=== PATIENT | female | born 1995 | race Two or more races ===

== ENCOUNTER 2025-02-02 19:54 | Emergency (ER) | payer MEDICAID, OTHER ==
[~2025-02-02] VITALS: Ht 154.9 cm; Wt 63.0 kg
[2025-02-02] MEDS: SODIUM CHLORIDE 0.9% 1,000 ML IV ONE (20:30)
--- NOTE | 2025-02-02 21:33 | ED.PDOC ---
VICE PRESIDENT SUPPLY CHAIN HPI Comments 29 y/o F presents with c/c of vaginal spotting for the past few days. Patient reports having her IUD replaced, approximately, 3x weeks ago. She had some few days of initial spotting following device replacement that resolved on its own. Symptoms recurred, again, in the last few days with associated chills. No recent sexual intercourse, history of STD's, or current endorsement. Denies any further acute symptoms. keyana: Vaginal bleed HPI: Poor Historian. 29-year-old female presents to emergency depart for evaluation of vaginal spotting for the last few days. Patient states she had her IUD replaced proximally three weeks ago. She did have some few days of spotting immediately after the replacement however it has resolved. Symptoms recurred again in the last few days with the associated mild chills. Denies any recent intercourse. Denies any history of STDs. Denies . Past Medical History: denies Past Surgical History: cholecystectomy, IUD REVIEW OF SYSTEMS: CONSTITUTIONAL: Denies acute: fever, diaphoresis, generalized weakness. HEAD: Denies acute: headache, photophobia Eyes: Denies acute: Double vision, vision loss, eye pain, eye discharge. EARS: Denies acute: tinnitus, hearing loss, ear discharge, ear pain, THROAT: Denies acute: sore throat, swelling, difficulty swallowing , pain with swallowing, change in voice. NECK: Denies acute: neck pain, neck swelling, stiff neck. HEART: Denies acute : chest pain, palpitations, LUNGS: Denies acute: SOB, wheezing, cough, hemoptysis ABDOMEN: Denies acute: abdominal pain, Nausea, Vomiting, diarrhea, melena , hematemesis, hematochezia SKIN: Denies acute: rash, redness, lesions, itchiness. EXTREMITIES: Denies acute: calf pain, numbness, tingling, weakness, denies pain in extremity. Denies acute: Low back pain. Neuro: Denies acute: focal neurological deficit, motor or sensory focal neurological deficit, tremors, seizure like activity, confusion, dizziness, change in mental status, loss of bowel or bladder function, cauda equina like symptoms. : Denies acute: dysuria, hematuria, flank pain, increase in urinary frequency. PSYCH: Denies acute: hallucination, suicidal ideation, homicidal ideation. FEMALE: Denies acute: , foul odor, unusual discharge. PHYSICAL EXAM: General: ----mild----acute distress, awake and alert. Head: normocephalic, atraumatic. No raccoon's eyes, no rowe sign. Neck: supple, trachea is midline, no swelling. Throat: Normal phonation. Eyes:, no erythema, no purulent discharge, no proptosis, no icterus. Heart: regular rate, regular rhythm, no significant murmur appreciated. Lungs: no apparent respiratory distress, Able to speak in full sentences. No wheezing, no rhonchi, no crackles. No stridors Clear to auscultation bilaterally. Abdomen: non tender to palpation, non distended, soft, no guarding, no rebound, + bowel sounds. Neuro: Awake, Alert, oriented to name, self, situation, follows commands GCS=15. Speech is normal. Skin: no petechia, no purpura, no cyanosis, non-pale, not jaundice. Lower extremities: --no - Pitting edema no deformity, no focal swelling, no calf TTP. Makes eye contact. moves all four extremities. Face: no apparent facial droop. Ambulating in the ED independently. ED COURSE: DISCLAIMER: This medical document was created using an electronic medical record system with voice recognition software and computerized dictation system. Although this document has been carefully reviewed, there might still be some phonetic and typographical errors. Occasional wrong-word or "sound-alike" substitutions may have occurred due to the inherent limitations of voice recognition software. These areas are purely typographical due to imperfections of the software programs and do not reflect any compromise in the patient's medical care. Please read the chart carefully and recognize, using context, where these substitutions have occurred. Chief Complaint: Vaginal Bleed Time Seen by MD: 21:31 Reviewed Notes: Allergies Information Source: Patient Was a procedure done? Was a procedure done?: No Differential Diagnosis (MARKETING ACCOUNT MANAGER) Vaginal Bleeding: - Complete, - Incomplete, - Inevitable, - Missed, - Threatened, Abruptio Placentae, Blood Loss Anemia, Cervicitis, Dysmenorrhea, Ectopic , Hormonal, Menorrhagia, Menometrorrhagia, Menstrual Bleeding, Myomatous Uterus, PID, Placenta Previa, Precipitous Hct, Trauma, UTI, Vaginitis, Other (Differential diagnosis includes but not limited to DU B, menorrhea, metromenorrhagia, neoplasm, coagulopathy,, trauma, miscarriage, placenta previa, placental abruption, ) X-Ray, Labs, Meds, VS Vital Signs Date Time Temp Pulse Resp B/P (MAP) Pulse Ox O2 Delivery O2 Flow Rate FiO2 02/03/25 00:33 99.1 60 17 128/84 (99) 96 99.1 02/02/25 21:40 98.3 91 16 134/94 (107) 96 98.3 02/02/25 21:40 91 16 91 Room Air 02/02/25 21:25 67 02/02/25 20:01 98.6 82 16 129/98 100 98.6 Lab Test 02/02/25 20:42 02/02/25 20:40 02/02/25 20:38 Range/Units White Blood Count 6.5 4.4-10.8 10^3/uL Red Blood Count 4.79 4.0-5.20 10^6/uL Hemoglobin 14.1 12.2-16.2 g/dL Hematocrit 41.2 36.0-46.0 % Mean Corpuscular Volume 86.2 80.0-100.0 fL Mean Corpuscular Hemoglobin 29.4 28.0-32.0 pg Mean Corpuscular Hemoglobin Concent 34.1 32.0-36.0 g/dL Red Cell Distribution Width 12.2 11.8-14.3 % Platelet Count 296 140-450 10^3/uL Mean Platelet Volume 8.9 6.9-10.8 fL Neutrophils (%) (Auto) 61.2 37.0-80.0 % Lymphocytes (%) (Auto) 29.1 10.0-50.0 % Monocytes (%) (Auto) 6.7 0.0-12.0 % Eosinophils (%) (Auto) 2.5 0.0-7.0 % Basophils (%) (Auto) 0.5 0.0-2.0 % Neutrophils # (Auto) 4.0 1.6-8.6 10 ^3/uL Lymphocytes # (Auto) 1.9 0.4-5.4 10 ^3/uL Monocytes # (Auto) 0.4 0-1.3 10 ^3/uL Eosinophils # (Auto) 0.2 0-0.8 10 ^3/uL Basophils # (Auto) 0 0-0.2 10 ^3/uL Nucleated Red Blood Cells 0.1 % Sodium Level 141 136-145 mmol/L Potassium Level 3.6 3.5-5.1 mmol/L Chloride Level 105 98-107 mmol/L Carbon Dioxide Level 24 20-31 mmol/L Anion Gap 12 5-15 Blood Urea Nitrogen 8 L 9-23 mg/dL Creatinine 0.73 0.550-1.02 mg/dL Glomerular Filtration Rate Calc 116 >90 mL/min BUN/Creatinine Ratio 11.0 10.0-20.0 Serum Glucose 84 74-106 mg/dL Calcium Level 9.6 8.7-10.4 mg/dL Total Bilirubin 0.7 0.2-1.0 mg/dL Aspartate Amino Transferase (AST) 14 13-40 U/L Alanine Aminotransferase (ALT) < 9 7-40 U/L Alkaline Phosphatase 54 46-116 U/L Total Protein 7.7 5.7-8.2 g/dL Albumin 4.7 3.2-4.8 g/dL Lactic Acid Level 1.0 0.4-2.0 mmol/L Urine Color Yellow Yellow Urine Clarity Clear Clear Urine pH 6.0 5.0-9.0 Urine Specific [place] 1.023 1.001-1.035 Urine Protein Trace H Negative Urine Ketones 1+ H Negative Urine Blood 3+ H Negative /uL Urine Nitrite Negative Negative Urine Bilirubin Negative Negative Urine Urobilinogen Normal Negative mg/dL Urine Leukocyte Esterase Negative Negative /uL Urine RBC 1 0 - 4 /hpf Urine Microscopic WBC 6 H 0-5 /HPF Urine Squamous Epithelial Cells Few <5 /hpf Urine Bacteria None seen None Seen /hpf Urine Mucus Few None Seen Urine Glucose Normal Normal mg/dL Urine Test Negative Negative Current Medications Medications (Trade) Dose Ordered Sig/Alice Route Start Time Stop Time Status Last Admin Sodium Chloride 1,000 ml @ 1,000 mls/hr Q1H ONCE IV 02/02/25 20:30 02/02/25 21:29 DC 02/02/25 20:30 [facility] [id number] [place] [id number] Ph: [phone] DIAGNOSTIC IMAGING Diagnostic Imaging Report : [id number] Signed PATIENT: CEDRIC ARIZA ACCT: [id number] UNIT: [id number] : 1995 LOC: ER ROOM / BED: / AGE / SEX: 29 / F ADM STATUS: REG ER SERVICE 28 ORDERING PHYSICIAN: RACHEL BONE DO PROCEDURE(s): PELUS - PELVIC REASON: vag bleed ORDER NUMBER(s): [id number], ACCESSION NUMBER(s): [id number] ULTRASOUND OF THE PELVIS (NON-OB) FEMALE INDICATION: Vaginal bleeding for several days. . LMP 01/11/2025. COMPARISON: None TECHNIQUE AND FINDINGS: Transabdominal Ultrasound: Transabdominal ultrasound examination was performed. Endovaginal Ultrasound: Endovaginal ultrasound was performed for improved visualization of pelvic structures. UTERUS: The uterus is anteverted and anteflexed and measures 8.5 x 4.4 x 6.4 cm. There is an IUD in the lower uterine segment. No focal uterine abnormality is seen. The endometrial stripe is 3 mm in thickness, within normal limits. RIGHT OVARY: The right ovary measures 2.8 x 1.9 x 1.9 cm. The right ovary is normal in appearance with expected Doppler flow. There is no evidence of abnormal adnexal mass. LEFT OVARY: The left ovary measures 2.5 x 2.0 x 1.9 cm. The left ovary is normal in appearance with expected Doppler flow. There is no evidence of abnormal adnexal mass. CUL de SAC: No evidence of pelvic free fluid or mass. IMPRESSION: IUD in the lower uterine segment. Recommend consultation with OBGYN. No other sonographic uterine abnormality. COMMENT: Both transabdominal ultrasound and endovaginal ultrasound were performed; the above impression reflects the composite impression from these two studies. No additional comment. ATED BY: JUNAID FIGUEROA MD DICTATED DATE/TIME: 02/02/252146 SIGNED BY: JUNAID FIGUEROA MD SIGNED DATE/TIME: 02/02/252146 CC: Time of 1ST Reevaluation: 21:31 Reevaluation 1ST: Unchanged Patient Education/Counseling: Diagnosis, Treatment Family Education/Counseling: No Family Present Comments MDM: patient presented with the above HPI.---vaginal bleed---workup was initiated. patient was found with the above mentioned diagnosis. the following medications were ordered: please refer to order lists of meds and tests obtained by myself Dr. Bone. Patient ED course and VS have been stabilized. Patient has been reassessed in the ED and remained in a stable condition. Pertinent incidental findings were discussed with the patient and/or family. Patient/family voices understanding and is agreeable with plan. Patient has been observed in the ED adequate length of time to insure improvement/stability. Escalation of care considered: Consideration of escalation to observation or admission Patient was DISCHARGED home in a stable condition. All the reports of any imaging studies that were ordered by myself were reviewed by myself. Departure 1 Departure Time of Disposition: 00:13 Impression: Primary Impression: Vaginal bleeding Disposition: HOME / SELF CARE / HOMELESS Condition: Stable Additional Instructions: Additional instructions: Please read all instructions provided in this packet carefully. You MUST follow-up with your primary care/family doctor in 1 to 2 days. If you are unable to see your primary care/family doctor, please return to our emergency room for re-assessment and re-evaluation in 1 to 2 days. Return to the emergency room here in our facility or to the nearest ER [facility] if your symptoms change or worsen. CONSULTATIONS: you MUST Follow-up for consultation as soon as possible with: Dr.-OB Dhillon doctor in 1-2 days. Please call for appointment. You MUST call the consultants office yourself to make an appointment. You may need to arrange that through your insurance and/or your primary/family doctor. If you are unable to see the automotive consultant in 1 to 2 days, you must return to our emergency room (or any other ER of your choice) for re-assessment and re- evaluation. Adequate fluid hydration. Although you have been discharged from the Emergency Department, this does not mean that you have a "clean bill of health". No definitive diagnosis for your symptoms has been made today. It is possible that you are in the process of developing a serious illness. This is why you must return to the ED without fail if any new or worsening symptoms develop. Absolute pelvic rest. Below is a copy of your radiological report for follow up: [address] [address] Ph: [phone] DIAGNOSTIC IMAGING Diagnostic Imaging Report : [id number] Signed PATIENT: CEDRIC ARIZA ACCT: [id number] UNIT: [id number] : 1995 LOC: ER ROOM / BED: / AGE / SEX: 29 / F ADM STATUS: REG ER SERVICE 28 ORDERING PHYSICIAN: RACHEL BONE DO PROCEDURE(s): PELUS - PELVIC REASON: vag bleed ORDER NUMBER(s): [id number], ACCESSION NUMBER(s): [id number] ULTRASOUND OF THE PELVIS (NON-OB) FEMALE INDICATION: Vaginal bleeding for several days. . LMP 01/11/2025. COMPARISON: None TECHNIQUE AND FINDINGS: Transabdominal Ultrasound: Transabdominal ultrasound examination was performed. Endovaginal Ultrasound: Endovaginal ultrasound was performed for improved visualization of pelvic structures. UTERUS: The uterus is anteverted and anteflexed and measures 8.5 x 4.4 x 6.4 cm. There is an IUD in the lower uterine segment. No focal uterine abnormality is seen. The endometrial stripe is 3 mm in thickness, within normal limits. RIGHT OVARY: The right ovary measures 2.8 x 1.9 x 1.9 cm. The right ovary is normal in appearance with expected Doppler flow. There is no evidence of abnor mal adnexal mass. LEFT OVARY: The left ovary measures 2.5 x 2.0 x 1.9 cm. The left ovary is normal in appearance with expected Doppler flow. There is no evidence of abnormal adnexal mass. CUL de SAC: No evidence of pelvic free fluid or mass. IMPRESSION: IUD in the lower uterine segment. Recommend consultation with OBGYN. No other sonographic uterine abnormality. COMMENT: Both transabdominal ultrasound and endovaginal ultrasound were performed; the above impression reflects the composite impression from these two studies. No additional comment. ATED BY: JUNAID FIGUEROA MD DICTATED DATE/TIME: 02/02/252146 SIGNED BY: JUNAID FIGUEROA MD SIGNED DATE/TIME: 02/02/252146 CC: Discharged With: Self Critical Care Note Critical Care Time?: No I personally scribed for RACHEL BONE DO ([email or web address]) on 02/02/25 at 21:33. Electronically submitted by Michael Linder ([email or web address]). I personally scribed for RACHEL BONE DO ([email or web address]) on 02/02/25 at 21:57. Electronically submitted by Michael Linder ([email or web address]). RACHEL BONE DO Feb 02, 2025 21:33
--- NOTE | 2025-02-02 21:49 | DVH ---
ULTRASOUND OF THE PELVIS (NON-OB) FEMALE INDICATION: Vaginal bleeding for several days. . LMP 01/11/2025. COMPARISON: None TECHNIQUE AND FINDINGS: Transabdominal Ultrasound: Transabdominal ultrasound examination was performed. Endovaginal Ultrasound: Endovaginal ultrasound was performed for improved visualization of pelvic structures. UTERUS: The uterus is anteverted and anteflexed and measures 8.5 x 4.4 x 6.4 cm. There is an IUD in the lower uterine segment. No focal uterine abnormality is seen. The endometrial stripe is 3 mm in thickness, within normal limits. RIGHT OVARY: The right ovary measures 2.8 x 1.9 x 1.9 cm. The right ovary is normal in appearance with expected Doppler flow. There is no evidence of abnormal adnexal mass. LEFT OVARY: The left ovary measures 2.5 x 2.0 x 1.9 cm. The left ovary is normal in appearance with expected Doppler flow. There is no evidence of abnormal adnexal mass. CUL de SAC: No evidence of pelvic free fluid or mass. IMPRESSION: IUD in the lower uterine segment. Recommend consultation with OBGYN. No other sonographic uterine abnormality. COMMENT: Both transabdominal ultrasound and endovaginal ultrasound were performed; the above impression reflects the composite impression from these two studies. No additional comment.
[2025-02-02 21:53] LABS: Hematocrit 41.2 % (36.0-46.0); Hemoglobin 14.1 g/dL (12.2-16.2); Mean Corpuscular Hemoglobin 29.4 pg (28.0-32.0); Mean Corpuscular Volume 86.2 fL (80.0-100.0); Nucleated Red Blood Cells % 0.1 %
[2025-02-02 22:04] LABS: Albumin 4.7 g/dL (3.2-4.8); Alkaline Phosphatase 54 U/L (46-116); Anion Gap 12 (5-15); BUN/Creatinine Ratio 11.0 (10.0-20.0); Calcium 9.6 mg/dL (8.7-10.4); Carbon Dioxide 24 mmol/L (20-31); Chloride 105 mmol/L (98-107); Glucose 84 mg/dL (74-106); Potassium 3.6 mmol/L (3.5-5.1); Sodium 141 mmol/L (136-145); Total Protein 7.7 g/dL (5.7-8.2)
[2025-02-02 22:05] LABS: Alanine Aminotransferase < 9 U/L (7-40); Bilirubin, Total 0.7 mg/dL (0.2-1.0); Blood Urea Nitrogen 8 mg/dL (9-23)
[2025-02-02 23:08] LABS: Urine Protein, UAD TRACE (Negative)
[2025-02-03 00:33] VITALS: BP 128/84; PULSE 60; RESP 17; TEMP 99.1; O2SAT 96
--- NOTE | 2025-02-05 07:34 | ECG ---
[facility] Test Date: 2025-02-02 Test Time: 21:18:15 Pat Name: CEDRIC ARIZA Department: ED Room: Gender: F [employer] Supervisor: : 1995 Requested By: RACHEL BONE Order Number: [id number] Reading MD: Bennie Lo Measurements Intervals Sharps Rate: 67 P: 35 MS: 110 QRS: 57 QRSD: 75 T: 23 QT: 383 QTc: 405 Interpretive Statements Sinus rhythm Borderline short MS interval Electronically Signed On 02-05-2025 17:54:25 PST by Bennie Lo Please click the below link to view image of tracing.
== END 2025-02-03 00:35 | disposition home or self-care (01) ==
LOC: ER 19:54
DX: N93.9 Abnormal uterine and vaginal bleeding, unspecified (principal); R68.83 Chills (without fever); Z90.49 Acquired absence of other specified parts of digestive tract
CPT/HCPCS: 36415; 76830; 76856; 80053; 81001; 81025; 83605; 85025; 86850; 86900; 86901; 87040; 96360; 99284; J7030